=== PATIENT | female | born 1995 | race Caucasian/White ===

== ENCOUNTER 2019-01-13 09:19 | Emergency (ER) | payer OTHER ==
[~2019-01-13] VITALS: Ht 165.1 cm; Wt 79.9 kg
[2019-01-13 09:41] VITALS: BP 127/90
[2019-01-13] MEDS ORDERED: IBUPROFEN 200 MG TABLET PO ONE (10:00)
[2019-01-13] MEDS ORDERED: IBUPROFEN 200 MG TABLET ONE (10:30)
--- NOTE | 2019-01-13 11:22 | NUR ---
MILADYS RN: SPLINT PLACED BY INSTRUCTOR DRAMATIC ARTS, PT PROVIDED DC INFORMATION, VERBALIZED UNDERSTANDING.
== END 2019-01-13 11:39 | disposition home or self-care (01) ==
LOC: ED 11:29
DX: S52.125A Nondisplaced fracture of head of left radius, initial encounter for closed fracture (principal); W00.0XXA Fall on same level due to ice and snow, initial encounter; Y93.89 Activity, other specified; Y92.218 Other school as the place of occurrence of the external cause; Y99.8 Other external cause status
CPT/HCPCS: 29105; 99283